=== PATIENT | female | born 1940 | race Caucasian/White ===

== ENCOUNTER → 2017-05-18 | Outpatient (CLI) | payer OTHER, MEDICARE ==
[~2017-05-18] MED LIST: ACT35; ATOR10TA88; CMD25; CMD5; METO25TA3; METO50TA7
--- NOTE | 2017-05-18 15:12 | MAMMOGRAPHY REPORT ---
BILATERAL DIGITAL SCREENING MAMMOGRAM WITH CAD: 05/18/2017 CLINICAL HISTORY: Routine screening. Patient has no complaints. TECHNIQUE: Bilateral CC and MLO views were obtained. Current study was also evaluated with a Compute r Aided Detection (CAD) system. COMPARISON: Comparison is made to exams dated: 05/12/2016 mammogram, 05/07/2015 mammogram, 05/01/2014 ma mmogram, 04/25/2013 mammogram, 04/19/2012 mammogram, and 04/14/2011 mammogram - [facility] nter. BREAST COMPOSITION: The tissue of both breasts is almost entirely fatty. FINDINGS: An asymmetry in the 12:00 left breast appears similar on all available prior mammograms robert ing back to at least 04/10/2008, therefore likely benign. No newsuspicious mass, architectural disto rtion or cluster of microcalcifications is seen. IMPRESSION: ACR BI-RADS CATEGORY 1: NEGATIVE There is no mammographic evidence of malignancy. A 1 year screening mammogram is recommended. The pa tient will receive written notification of the results. Approximately 10% of breast cancers are not detected with mammography. A negative mammographic report should not delay biopsy if a clinically suggestive mass is present. Maggi Rapp M.D. ay/:05/18/2017 09:20:43 Oncology Rep Specialist: Keyanna JORDAN(Julito)(Blu)(BD), [facility] letter sent: Normal 1/2 BI-RADS Code: ACR BI-RADS Category 1: Negative
== END | disposition home or self-care (01) ==
LOC: C.MAMM 07:10
PROVIDERS: ATTEND Obstetrics & Gynecology
DX: Z12.31 Encounter for screening mammogram for malignant neoplasm of breast (principal)

== ENCOUNTER → 2018-05-24 | Outpatient (CLI) | payer OTHER, MEDICARE ==
[~2018-05-24] MED LIST changes: +ATOR10TA82; -ATOR10TA88; -METO50TA7; +METO50TA8
--- NOTE | 2018-05-25 07:31 | MAMMOGRAPHY REPORT ---
BILATERAL DIGITAL SCREENING MAMMOGRAM TOMOSYNTHESIS WITH CAD: 05/24/2018 CLINICAL HISTORY: Routine screening. Patient has no complaints. TECHNIQUE: The study was acquired using full field digital technology and interpreted from soft copy. Breast tomosynthesis in addition to standard 2D mammography was performed. Current study was also ev aluated with a Computer Aided Detection (CAD) system. COMPARISON: Comparison is made to exams dated: 05/18/2017 mammogram, 05/12/2016 mammogram, 05/07/2015 ma mmogram, 04/25/2013 mammogram, 05/01/2014 mammogram, and 04/19/2012 mammogram - [facility] nter. BREAST COMPOSITION: The tissue of both breasts is almost entirely fatty. FINDINGS: Stable focal asymmetry in the 12:00 left breast. No suspicious mass, architectural distorti on or cluster of microcalcifications is seen. IMPRESSION: ACR BI-RADS CATEGORY 1: NEGATIVE There is no mammographic evidence of malignancy. A 1 year screening mammogram is recommended.( [id number]) The patient will receive written notification of the results. Some breast cancers are not detected with mammography. A negative mammographic report should not bess y biopsy if a clinically suggestive mass is present. Maggi Rapp M.D. ay/:05/24/2018 17:10:58 Crib Pad Maker: Narcisa Mcneill, [facility] letter sent: Normal 1/2 BI-RADS Code: ACR BI-RADS Category 1: Negative
== END | disposition home or self-care (01) ==
LOC: C.MAMM 07:17
PROVIDERS: ATTEND Obstetrics & Gynecology
DX: Z12.31 Encounter for screening mammogram for malignant neoplasm of breast (principal)